=== PATIENT | male | born 1995 | race Caucasian/White ===

== ENCOUNTER 2018-02-24 00:34 | Emergency (ER) | payer SELFPAY ==
[2018-02-24] MEDS ORDERED: AMOX/CLAVUL 400MG/5ML PREPACK BTL TAKEHOME ONE (01:30)
[2018-02-24] MEDS ORDERED: HYDROCOD/APAP 7.5/325 IN 15ML UDCUP PO ONE (01:30)
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
[2018-02-24 02:09] VITALS: BP 157/74
== END 2018-02-24 02:10 | disposition home or self-care (01) ==
DX: S02.609A Fracture of mandible, unspecified, initial encounter for closed fracture (principal); F17.200 Nicotine dependence, unspecified, uncomplicated; W22.8XXA Striking against or struck by other objects, initial encounter